=== PATIENT | female | born 1975 | race Caucasian/White ===

== ENCOUNTER 2019-02-12 03:28 | Emergency (ER) | payer BC, OTHER ==
[2019-02-12] MEDS ORDERED: LIDOCAINE 2% VISCOUS SOLN 20 ML UDCUP PO ONE (03:54)
[2019-02-12] MEDS ORDERED: MAG HYDROX/AL HYDROX/SIMETH SUSP 30 ML UDCUP PO ONE (03:54)
[2019-02-12] MEDS ORDERED: METOCLOPRAMIDE HCL ORAL SOLN 10 MG/10 ML UDCUP PO ONE (03:54)
--- NOTE | 2019-02-12 03:57 | ER Document Report ---
ED General - General Chief Complaint: Shortness Of Breath Stated Complaint: TROUBLE BREATHING Time Seen by Provider: 02/12/19 03:44 Primary Care Provider: LENCHO CANSECO MD [Primary Care Provider] - Follow up as needed Notes: Patient is a pleasant 43-year-old female presents with complaint of burning and pain in her esophagus. She says she woke up tonight esophagus burning to the back of her throat. She then felt tightness in chest and felt short of breath. She took Tums which relieved a lot of symptoms. She says she still has a little burning but not as much. No fevers. She is also concerned that she was recently diagnosed with Aditi-Vazquez virus after she is had a week or so of body aches and feeling weak. She denies sore throat except for until tonight when she had the burning going into her throat. She denies any abdominal pain. No pain over the liver. No rash. No other complaints at this time. TRAVEL OUTSIDE OF THE [place] IN LAST 30 DAYS: No - Related Data Allergies/Adverse Reactions: amoxicillin Allergy (Verified 02/12/19 03:58) Past Medical History - Social History Smoking Status: Unknown if Ever Smoked Frequency of alcohol use: None Drug Abuse: None Family History: Reviewed & Not Pertinent Patient has suicidal ideation: No Patient has homicidal ideation: No Renal/ Medical History: Denies: Hx Peritoneal Dialysis Review of Systems - Review of Systems Notes: My Normal Review Basic REVIEW OF SYSTEMS: CONSTITUTIONAL : Denies fever, chills, or sweats. EENT: Burning sensation going into the throat. CARDIOVASCULAR: Denies chest pain. RESPIRATORY: Denies cough, cold, or chest congestion. Short episode of dyspnea relieved with Tums. GASTROINTESTINAL: Denies abdominal pain. Denies nausea, vomiting, or diarrhea. MUSCULOSKELETAL: Generalized body aches SKIN: Denies rash or skin lesions. NEUROLOGICAL: Denies altered mental status or loss of consciousness. Denies headache. Denies weakness or paralysis or loss of use of either side. Denies problems with gait or speech. Denies sensory or motor loss. ALL OTHER SYSTEMS REVIEWED AND NEGATIVE. Physical Exam - Vital signs Vitals: Temp Pulse Resp BP Pulse Ox 97.9 F 79 16 129/86 H 95 02/12/19 03:36 02/12/19 03:36 02/12/19 03:36 02/12/19 03:36 02/12/19 03:36 - Notes Notes: General Appearance: Well nourished, alert, cooperative, no acute distress, no obvious discomfort. Well-appearing. Vitals: reviewed, See vital signs table. Head: no swelling or tenderness to the head Eyes: PERRL, EOMI, Conjuctiva clear Mouth: No decreasd moisture Throat: No tonsillar inflammation, No airway obstruction, No lymphadenopathy Ears: Normal-appearing tympanic membranes bilaterally. Neck: Supple, no neck tenderness, No neck swelling Lungs: No wheezing, No rales, No rhonci, No accessory muscle use, good air exchange bilaterally. Heart: Normal rate, Regular rythm, No murmur, no rub Abdomen: Normal BS, soft, No rigidity, No abdominal tenderness, No guarding, no rebound, no abdominal masses, no organomegaly Extremities: good pulses in all extremities, no edema. Skin: warm, dry, appropriate color, no rash Neuro: speech clear, oriented x 3, normal affect, responds appropriately to questions. Course - Re-evaluation Re-evalutation: 02/12/19 04:43 Patient is feeling much improved after GI cocktail. She still has a small amount of burning in her stomach but the burning into her esophagus and throat is completely resolved. She looks well. I suspect she likely has acid reflux with what was probably esophageal spasms tonight. Patient's EKG is normal appearing. She looks well. She is safe to be discharged home. She is recent been taking ibuprofen and Motrin because of the body aches from what is likely be mono from EBV. She is also ate pizza with spaghetti sauce tonight before going to bed which likely is what triggered her episode tonight. I encouraged her to take Prilosec for the next 2 weeks and then switch to Pepcid. I encouraged her to take Carafate as prescribed. Encouraged to return to ER if she has worsening pain, fevers, vomiting, or she feels unwell. Patient agrees with plan and will be discharged home. Dictation of this chart was performed using voice recognition software; therefore, there may be some unintended grammatical errors. - Vital Signs Vital signs: Temp Pulse Resp BP Pulse Ox 97.9 F 79 16 151/88 H 96 02/12/19 03:36 02/12/19 03:36 02/12/19 03:36 02/12/19 03:47 02/12/19 03:48 - EKG Interpretation by Me Additional EKG results interpreted by me: 02/12/19 04:20 EKG is reviewed and interpreted by me. EKG shows sinus rhythm rate of [address] segment elevation or depression. No concerning ischemic changes. CA interval, QRS duration, QT intervals are within normal range. No old EKG available for comparison. Discharge - Discharge Clinical Impression: Reflux esophagitis Gastritis Qualifiers: Gastritis type: unspecified gastritis Chronicity: acute Gastritis bleeding: without bleeding Qualified Code(s): K29.00 - Acute gastritis without bleeding Condition: Good Disposition: HOME, SELF-CARE Additional Instructions: I suspect that most likely your pain is related to gastritis ulcer in your stomach with acid reflux. This will cause pain when you eat and drink and also sometimes cause you to vomit. Please buy [id number]-sbqbkta omeprazole. This is the generic of Prilosec. Please take 20 mg of omeprazole every day for 2 weeks. After 2 weeks you should switch to Pepcid 20 mg a day. I have prescribed Carafate. You can start taking the Carafate if you are not having improvement of your pain after 2-3 days of treatment with the omeprazole. Diet is extremely important in treating this. Please drink non-caffeinated nonacidic fluids for the next 24 hours. After 24 hours you can start eating food again. Please avoid anything that spicy, acidic, or fatty or fried. Please eat only very bland foods such as bread or rice. Please avoid smoking. Please avoid coffee and tea. Please return to the ER immediately if you have worsening pain, fevers, intractable vomiting, or if you ever have any vomiting of blood or black or tarry stools.Avoid any NSAID use such as advil, ibuprofen, motrin, aleve, or naprosyn. Tylenol is safe to take. Prescriptions: Sucralfate [Carafate] 1 gm PO ACHS 7 Days oral.susp Referrals: LENCHO CANSECO MD [Primary Care Provider] - Follow up in 3-5 days
[2019-02-12 04:46] VITALS: BP 132/71
--- NOTE | 2019-02-12 09:25 | EKG REPORT ---
SEVERITY:- BORDERLINE ECG - SINUS RHYTHM CONSIDER ANTERIOR INFARCT VERSUS POOR LEAD PLACEMENT V2,V3. CLINICAL CORRELATION NEEDED. : Confirmed by: Jose Cosby MD 12-Feb-2019 09:25:13
== END 2019-02-12 04:51 | disposition home or self-care (01) ==
LOC: ER 03:28
DX: K21.0 Gastro-esophageal reflux disease with esophagitis (principal); K29.00 Acute gastritis without bleeding; R07.89 Other chest pain; R06.02 Shortness of breath; Z88.0 Allergy status to penicillin
CPT/HCPCS: 93005; 99284; 93010; J3490